=== PATIENT | male | born 1940 | race Caucasian/White ===

== ENCOUNTER → 2016-08-23 | Outpatient (CLI) | payer OTHER ==
--- NOTE | 2016-08-23 16:11 | DX ---
Sinus radiographs 3 views History: Postnasal drip for years, increasing lately. Comparison: None available. Findings: The paranasal sinuses appear aerated and clear. No air-fluid levels are identified. No disp laced fracture is identified. The nasal septum is minimally deviated to the right. Impression: No acute findings.
== END ==
LOC: BMCIMAGING 15:49
PROVIDERS: ATTEND Allergy & Immunology Allergy
DX: R09.82 Postnasal drip (principal)

== ENCOUNTER → 2016-09-09 | Outpatient (CLI) | payer OTHER ==
--- NOTE | 2016-09-09 11:15 | DX ---
PA and lateral chest. Clinical History: Cough, rule out pneumonia Comparison Study: March 29, 2011.. Findings: Minimal linear atelectasis is identified in the left lower lobe. No confluent infiltrate or pleural effusion. Heart size is normal.. Visualized osseous structures appear normal. Impression: Mild left lower lobe atelectasis, new. Otherwise negative.
== END ==
LOC: BMCIMAGING 10:31
PROVIDERS: ATTEND Allergy & Immunology Allergy
DX: R05 Cough (principal); J98.11 Atelectasis

== ENCOUNTER → 2016-09-20 | Outpatient (CLI) | payer OTHER | LOC: FIMAGING 10:29 | PROVIDERS: ATTEND Allergy & Immunology Allergy | DX: R05 Cough (principal) ==

== ENCOUNTER → 2016-10-13 | Outpatient (CLI) | payer OTHER | LOC: FIMAGING 09:45 | PROVIDERS: ATTEND Allergy & Immunology Allergy | DX: K21.9 Gastro-esophageal reflux disease without esophagitis (principal); K44.9 Diaphragmatic hernia without obstruction or gangrene ==

== ENCOUNTER → 2017-07-28 | Outpatient (CLI) | payer OTHER | LOC: FIMAGING 15:51 | PROVIDERS: ATTEND Orthopaedic Surgery | DX: Z01.818 Encounter for other preprocedural examination (principal); M17.12 Unilateral primary osteoarthritis, left knee ==

== ENCOUNTER 2017-08-15 08:35 | Observation (INO) | payer OTHER ==
--- NOTE | 2017-08-15 07:00 | PDHPUP ---
History & Physical Update H&P update statement: This history and physical update is based on an assessment of the patient which was completed after admission or registration (within 24 hours), but prior to the surgery/procedure.
--- NOTE | 2017-08-15 07:01 | PDIAF ---
- Diagnosis Diagnosis: L knee DJD Code Status: Full Code - Medication Management Discharge Medications: Medications to Continue on Transfer Aspirin [Aspirin 81mg (*)] 81 mg PO DAILY 07/13/17 [Last Taken Unknown] Carboxymethylcellulose 1% [Refresh Celluvisc (*)] 1 drop EACHEYE DAILY 07/13/17 [Last Taken Unknown] Finasteride [Proscar 5 MG (*)] 5 mg PO HS 07/13/17 [Last Taken Unknown] Herbals/Supplements -Info Only 1 ea PO DAILY 07/13/17 [Last Taken Unknown] Lisinopril [Zestril 5 mg (*)] 5 mg PO DAILY 07/13/17 [Last Taken Unknown] Multivitamins [Multivitamin (*)] 1 each PO DAILY 07/13/17 [Last Taken Unknown] Simvastatin [Zocor] 40 mg PO HS 07/13/17 [Last Taken Unknown] Solifenacin Succinate [Vesicare 5 MG (*)] 5 mg PO HS 07/13/17 [Last Taken Unknown] Discharge Medications: Refer to the Discharge Home Medication list for PRN reason. - Orders Services needed: Physical Therapy Activity/Weight Bearing Restrictions: WBAT, daily dressing changes, ROM as tolerated, may shower without bandage, no soaking or emersion, seek attention for increasing pain, SOB, CP, leg pain or other focal complaint, f/u up at 2 weeks as previously scheduled - Follow Up Care Current Providers and Referrals: Freddie Almanza MD [Primary Care Provider] -
[~2017-08-15 08:35] MED LIST: ROPIVACAINE 0.2% 80 MG, EPINEPHrine 0.2 MG, KETOROLAC TROMETHAMINE 30 MG, morphINE 10 M... IU ONE; TRANEXAMIC ACID 750 MG in NS 100 ML IV ONE
[2017-08-15] MEDS ORDERED: FAMOTIDINE 20 MG TAB PO ONE ×2 (09:15)
[2017-08-15] MEDS ORDERED: ceFAZolin 2 GM/SWFI 2 GM/20 ML SYR IVP ONE (09:15)
[2017-08-15] MEDS ORDERED: ACETAMINOPHEN 325 MG TAB PO ONE (09:15)
[2017-08-15] MEDS ORDERED: LIDOCAINE 1% 2 ML INJ ID PRN (09:16)
[2017-08-15] MEDS ORDERED: LR 1,000 ML IV ONE (09:16)
[2017-08-15] MEDS ORDERED: CALCIUM CHLORIDE 1 GM/10 ML INJ ONE (09:35)
[2017-08-15] MEDS ORDERED: THROMBIN (BOVINE) 5,000 UNIT VIAL TP ONE (09:35)
[2017-08-15] MEDS ORDERED: ceFAZolin 1 GM/5 ML SYR ONE ×2 (10:32→10:43)
--- NOTE | 2017-08-15 10:45 | PDANEPAE ---
ANE History of Present Illness 77 year old with type 1 diabetes onset in 2008. Blood sugar was 158 at 9:25. He has hyperlipidemia for which he is on simvistatin. GERD well controlled with omeprazole. He has had anesthesia in the past without difficulties. ANE Past Medical History - Cardiovascular History Hx Hypertension: Yes Hx Arrhythmias: No Hx Chest Pain: No Hx Coronary Artery / Peripheral Vascular Disease: No Hx CHF / Valvular Disease: No Hx Palpitations: No - Pulmonary History Hx COPD: No Hx Asthma/Reactive Airway Disease: No Hx Recent Upper Respiratory Infection: No Hx Oxygen in Use at Home: No Hx Sleep Apnea: No Sleep Apnea Screening Result - Last Documented: Positive - Neurologic History Hx Cerebrovascular Accident: No Hx Seizures: No Hx Dementia: No - Endocrine History Hx Diabetes: Yes Endocrine History Comment: type one diabetic - Renal History Hx Renal Disorders: No - Liver History Hx Hepatic Disorders: No - Neurological & Psychiatric Hx Hx Neurological and Psychiatric Disorders: Yes Neurological / Psychiatric History Comment: bilat neuropathy - Cancer History Hx Cancer: Yes Cancer History Comment: skin - Congenital Disorder History Hx Congenital Disorders: No - GI History Hx Gastrointestinal Disorders: Yes Gastrointestinal History Comment: reflux - Other Health History Other Health History: none - Chronic Pain History Chronic Pain: No - Surgical History Prior Surgeries: arthroscopic Lknee ANE Review of Systems Review of Systems: - Exercise capacity METS (RN): 4 METS ANE Patient History - Allergies Allergies/Adverse Reactions: No Known Allergies Allergy (Verified 07/15/17 10:39) - Home Medications Home Medications: Aspirin [Aspirin 81mg (*)] 81 mg PO DAILY 07/13/17 [Last Taken Unknown] Carboxymethylcellulose 1% [Refresh Celluvisc (*)] 1 drop EACHEYE DAILY 07/13/17 [Last Taken Unknown] Finasteride [Proscar 5 MG (*)] 5 mg PO HS 07/13/17 [Last Taken Unknown] Herbals/Supplements -Info Only 1 ea PO DAILY 07/13/17 [Last Taken Unknown] Lisinopril [Zestril 5 mg (*)] 5 mg PO DAILY 07/13/17 [Last Taken Unknown] Multivitamins [Multivitamin (*)] 1 each PO DAILY 07/13/17 [Last Taken Unknown] Simvastatin [Zocor] 40 mg PO HS 07/13/17 [Last Taken Unknown] Solifenacin Succinate [Vesicare 5 MG (*)] 5 mg PO HS 07/13/17 [Last Taken Unknown] - NPO status NPO Since - Liquids (Date): 08/14/17 NPO Since - Liquids (Time): 19:00 NPO Since - Solids (Date): 08/14/17 NPO Since - Solids (Time): 19:00 - Smoking Hx Smoking Status: Former smoker - Family Anes Hx Family Hx Anesthesia Complications: none ANE Labs/Vital Signs - Vital Signs Blood Pressure: 146/84 Heart Rate: 82 Respiratory Rate: 18 O2 Sat (%): 94 Height: 177.8 cm Weight: 74.843 kg ANE Physical Exam - Airway Neck exam: FROM Mallampati Score: Class 1 Mouth exam: normal dental/mouth exam - Pulmonary Pulmonary: no respiratory distress - Cardiovascular Cardiovascular: regular rate and rhythym - ASA Status ASA Status: II ANE Anesthesia Plan Anesthesia Plan: MAC, spinal Total IV Anesthesia: Yes
--- NOTE | 2017-08-15 10:52 | PDANEPAE ---
ANE Past Medical History - Cardiovascular History Hx Hypertension: Yes Hx Arrhythmias: No Hx Chest Pain: No Hx Coronary Artery / Peripheral Vascular Disease: No Hx CHF / Valvular Disease: No Hx Palpitations: No - Pulmonary History Hx COPD: No Hx Asthma/Reactive Airway Disease: No Hx Recent Upper Respiratory Infection: No Hx Oxygen in Use at Home: No Hx Sleep Apnea: No Sleep Apnea Screening Result - Last Documented: Positive - Neurologic History Hx Cerebrovascular Accident: No Hx Seizures: No Hx Dementia: No - Endocrine History Hx Diabetes: Yes Endocrine History Comment: type one diabetic - Renal History Hx Renal Disorders: No - Liver History Hx Hepatic Disorders: No - Neurological & Psychiatric Hx Hx Neurological and Psychiatric Disorders: Yes Neurological / Psychiatric History Comment: bilat neuropathy - Cancer History Hx Cancer: Yes Cancer History Comment: skin - Congenital Disorder History Hx Congenital Disorders: No - GI History Hx Gastrointestinal Disorders: Yes Gastrointestinal History Comment: reflux - Other Health History Other Health History: none - Chronic Pain History Chronic Pain: No - Surgical History Prior Surgeries: arthroscopic Lknee ANE Review of Systems Review of Systems: - Exercise capacity METS (RN): 4 METS ANE Patient History - Allergies Allergies/Adverse Reactions: No Known Allergies Allergy (Verified 07/15/17 10:39) - Home Medications Home Medications: Aspirin [Aspirin 81mg (*)] 81 mg PO DAILY 07/13/17 [Last Taken Unknown] Carboxymethylcellulose 1% [Refresh Celluvisc (*)] 1 drop EACHEYE DAILY 07/13/17 [Last Taken Unknown] Finasteride [Proscar 5 MG (*)] 5 mg PO HS 07/13/17 [Last Taken Unknown] Herbals/Supplements -Info Only 1 ea PO DAILY 07/13/17 [Last Taken Unknown] Lisinopril [Zestril 5 mg (*)] 5 mg PO DAILY 07/13/17 [Last Taken Unknown] Multivitamins [Multivitamin (*)] 1 each PO DAILY 07/13/17 [Last Taken Unknown] Simvastatin [Zocor] 40 mg PO HS 07/13/17 [Last Taken Unknown] Solifenacin Succinate [Vesicare 5 MG (*)] 5 mg PO HS 07/13/17 [Last Taken Unknown] - NPO status NPO Since - Liquids (Date): 08/14/17 NPO Since - Liquids (Time): 19:00 NPO Since - Solids (Date): 08/14/17 NPO Since - Solids (Time): 19:00 - Smoking Hx Smoking Status: Former smoker - Family Anes Hx Family Hx Anesthesia Complications: none ANE Labs/Vital Signs - Vital Signs Blood Pressure: 146/84 Heart Rate: 82 Respiratory Rate: 18 O2 Sat (%): 94 Height: 177.8 cm Weight: 74.843 kg ANE Anesthesia Plan Anesthesia Plan: general endotracheal anesthesia (Patient had spinal with a Post Dural Puncture Headache and blood patch would prefer General Anesthesia)
[2017-08-15] MEDS ORDERED: ROCURONIUM 50 MG/5 ML VIAL ONE (10:57)
[2017-08-15] MEDS ORDERED: fentaNYL 250 MCG/5 ML INJ ONE (10:57)
[2017-08-15] MEDS ORDERED: MIDAZOLAM 2 MG/2 ML VIAL ONE (10:57)
[2017-08-15] MEDS ORDERED: PROPOFOL 200 MG/20 ML VIAL ONE (10:57)
[2017-08-15] MEDS ORDERED: ONDANSETRON 4 MG/2 ML VIAL ONE (12:47)
[2017-08-15] MEDS ORDERED: DEXAMETHASONE 4 MG/ML VIAL ONE (12:47)
[2017-08-15] MEDS ORDERED: HYDROmorphONE/DILAUDID 2 MG/ML INJ ONE (13:02)
[2017-08-15] MEDS ORDERED: NALOXONE HCL 0.4 MG/ML INJ IVP PRN (13:10)
[2017-08-15] MEDS ORDERED: MEPERIDINE 25 MG/ML SYR IVP PRN (13:10)
[2017-08-15] MEDS ORDERED: ONDANSETRON 4 MG/2 ML VIAL IVP PRN ×2 (13:10→13:38)
[2017-08-15] MEDS ORDERED: fentaNYL 100 MCG/2 ML INJ IVP PRN (13:10)
[2017-08-15] MEDS ORDERED: LR 500 ML IV PRN (13:10)
[2017-08-15] MEDS ORDERED: ONDANSETRON DISINTEGRATING 4 MG TAB PO PRN (13:38)
[2017-08-15] MEDS ORDERED: diphenhydrAMINE 25 MG CAP PO PRN (13:38)
[2017-08-15] MEDS ORDERED: POLYETHYLENE GLYCOL 3350 17 GM PKT PO PRN (13:38)
[2017-08-15] MEDS ORDERED: BISACODYL 10 MG SUPP PR PRN (13:38)
[2017-08-15] MEDS ORDERED: PROMETHAZINE HCL 25 MG/ML INJ IVP PRN (13:38)
[2017-08-15] MEDS ORDERED: LACTULOSE 20 GM/30 ML UDCUP PO PRN (13:38)
[2017-08-15] MEDS ORDERED: PROMETHAZINE HCL 25 MG SUPPR PR PRN (13:38)
[2017-08-15] MEDS ORDERED: MAGNESIUM HYDROXIDE 30 ML UDCUP PO PRN (13:38)
[2017-08-15] MEDS ORDERED: DIPHENOXYLATE/ATROPINE LOMOTIL 1 TAB PO PRN (13:38)
[2017-08-15] MEDS ORDERED: DIAZEPAM 5 MG TAB PO PRN (13:38)
[2017-08-15] MEDS ORDERED: TEMAZEPAM 15 MG CAP PO PRN (13:38)
[2017-08-15] MEDS ORDERED: METOCLOPRAMIDE 10 MG/2 ML VIAL IVP PRN (13:38)
[2017-08-15] MEDS ORDERED: NEOSTIGMINE METHYLSULFATE 3 MG/3 ML SYR ONE (13:57)
[2017-08-15] MEDS ORDERED: GLYCOPYRROLATE 0.2 MG/1 ML VIAL ONE (13:57)
[2017-08-15] MEDS ORDERED: LR 1,000 ML IV SCH (14:00)
[2017-08-15] MEDS: oxyCODONE IR 5 MG TAB PO PRN ×2 (16:29→19:48)
[2017-08-15] MEDS: ACETAMINOPHEN 325 MG TAB PO SCH ×2 (18:21→23:12)
[2017-08-15] MEDS: TRANEXAMIC ACID 650 MG TAB PO SCH ×2 (18:58→20:34)
[2017-08-15] MEDS: ceFAZolin 2 GM/DEXTROSE 100 ML IV SCH (19:49)
[2017-08-15] MEDS: ASPIRIN 325 MG TAB PO SCH (20:32)
[2017-08-15] MEDS: FAMOTIDINE 20 MG TAB PO SCH (20:33)
[2017-08-15] MEDS: SENNOSIDES/DOCUSATE SODIUM TAB PO SCH (20:33)
[2017-08-15] MEDS ORDERED: SOLIFENACIN SUCCINATE 5 MG TAB PO SCH (21:00)
[2017-08-15] MEDS ORDERED: ATORVASTATIN CALCIUM 20 MG TAB PO SCH (21:00)
[2017-08-15] MEDS ORDERED: FINASTERIDE 5 MG TAB PO SCH (21:00)
[2017-08-16] MEDS: ceFAZolin 2 GM/DEXTROSE 100 ML IV SCH (04:26)
[2017-08-16] MEDS ORDERED: TRANEXAMIC ACID 650 MG TAB PO SCH (04:30)
[2017-08-16] MEDS: ACETAMINOPHEN 325 MG TAB PO SCH (05:12)
[2017-08-16 07:21] VITALS: BP 137/81; RESP 16; TEMP 98.3
--- NOTE | 2017-08-16 07:51 | PDIAF ---
- Diagnosis Diagnosis: L knee DJD Code Status: Full Code - Medication Management Discharge Medications: Medications to Continue on Transfer Aspirin [Aspirin 81mg (*)] 81 mg PO DAILY 07/13/17 [Last Taken Unknown] Carboxymethylcellulose 1% [Refresh Celluvisc (*)] 1 drop EACHEYE DAILY 07/13/17 [Last Taken Unknown] Finasteride [Proscar 5 MG (*)] 5 mg PO HS 07/13/17 [Last Taken Unknown] Herbals/Supplements -Info Only 1 ea PO DAILY 07/13/17 [Last Taken Unknown] Lisinopril [Zestril 5 mg (*)] 5 mg PO DAILY 07/13/17 [Last Taken Unknown] Multivitamins [Multivitamin (*)] 1 each PO DAILY 07/13/17 [Last Taken Unknown] Simvastatin [Zocor] 40 mg PO HS 07/13/17 [Last Taken Unknown] Solifenacin Succinate [Vesicare 5 MG (*)] 5 mg PO HS 07/13/17 [Last Taken Unknown] Aspirin [Aspirin 325 mg (*)] 325 mg PO DAILY tab 08/16/17 [Last Taken Unknown] oxyCODONE IR [Oxycodone Ir (*)] 5 - 10 mg PO Q3HRS PRN #90 tab 08/16/17 [Last Taken Unknown] Discharge Medications: Refer to the Discharge Home Medication list for PRN reason. - Orders Services needed: Physical Therapy Diet Recommendation: no restrictions on diet Activity/Weight Bearing Restrictions: WBAT, daily dressing changes, ROM as tolerated, may shower without bandage, no soaking or emersion, seek attention for increasing pain, SOB, CP, leg pain or other focal complaint, f/u up at 2 weeks as previously scheduled - Follow Up Care Current Providers and Referrals: Freddie Almanza MD [Primary Care Provider] -
--- NOTE | 2017-08-16 07:53 | SOAPPROG ---
SOAP Progress Note Assessment/Plan: Assessment: s/p left tka Plan: wbat rom sas marit d/c home dvt precautions monitor glucose level 08/16/17 07:51 Subjective: mild pain no cp or sob marti po Objective: Vital Signs Temp Pulse Resp BP Pulse Ox 36.8 C 73 16 137/81 H 95 08/16/17 07:20 08/16/17 07:20 08/16/17 07:20 08/16/17 07:20 08/16/17 07:20 Laboratory Results 08/16/17 04:49 08/15/17 08/16/17 08/17/17 05:59 05:59 05:59 Intake Total 2880 Output Total 605 Balance 2275 dressing intact intact pf,df, ehl toes warm andpink neg homans xrays stable alignemnt, no fx or lucency ICD10 Worksheet Patient Problems: Problems Problem Status Onset Arthritis of knee, left Acute - ICD10 Problem Qualifiers (1) Arthritis of knee, left
[2017-08-16] MEDS: FAMOTIDINE 20 MG TAB PO SCH (08:33)
[2017-08-16] MEDS: SENNOSIDES/DOCUSATE SODIUM TAB PO SCH (08:34)
[2017-08-16] MEDS: oxyCODONE IR 5 MG TAB PO PRN (08:34)
[2017-08-16] MEDS: ASPIRIN 325 MG TAB PO SCH (08:34)
[2017-08-16] MEDS ORDERED: Carboxymethylcellulose 1% [Refresh Celluvisc (*)] 1 DROP EACHEYE SCH (09:00)
[2017-08-16] MEDS ORDERED: LISINOPRIL 5 MG TAB PO SCH (09:00)
--- NOTE | 2017-08-16 12:20 | ASDISCHSUM ---
Discharge Information Plan Status:Home with Home Health Medically Cleared to Leave: Discharge Date:08/16/2017 11:50 AM CM D/C Disposition:Home Health Service ADT D/C Disposition:Home Health Service Projected Discharge Date:08/16/2017 11:00 AM Transportation at D/C: Discharge Delay Reason: Follow-Up Date:08/16/2017 11:00 AM Discharge Slot: Final Diagnosis: Placement Information Referral Type:*Home Health Care Services Referral ID:[id number] Provider Name:[facility] [place] Address 1:[facility] [address] Address 2: City:[place] Selection Factors: State:[place] Patient Contact Information Contact Name:VARGHESE Relationship: Address:[address] Home Phone: City:[place] Alternate Phone: State/Zip Code:[place] [address] Email: Financial Information Financial Class: Primary Plan Desc:MEDICARE OUTPATIENT Primary Plan Number:[id number] Secondary Plan Desc:[place] [employer] Secondary Plan Number:[id number] Assessment Information [facility] CM Progress Note CM Note CM Note Notes: Pt medically stable for d/c with [facility], address/phone verified. Orders sent in [email or web address]. Date Signed: 08/16/2017 12:19 PM Electronically Signed By:RITU Morales Intervention Information Intervention Type:*Incorrect Registration Date of Service:08/15/2017 03:18 PM Patient Type:Inpatient Staff Member:MERE Canseco Courtney Hours: Discipline: Severity: Comment: Intervention Type:*PETERS-Signed Date of Service:08/16/2017 10:16 AM Patient Type:Observation Staff Member:Billie Bojorquez Hours: Discipline: Severity: Comment:
--- NOTE | 2017-08-16 12:20 | ASMTCMCOM ---
CM Note CM Note Notes: Pt medically stable for d/c with [facility], address/phone verified. Orders sent in [employer]. Date Signed: 08/16/2017 12:19 PM Electronically Signed By:RITU Morales
[2017-08-16 13:19] VITALS: PULSE 77; O2SAT 91
== END 2017-08-16 11:50 | disposition home health service (06) ==
LOC: F3N 08:35 → INTOOBSV 08:35 → F3N 15:33
PROVIDERS: ADMIT Orthopaedic Surgery; ATTEND Orthopaedic Surgery
PROC: 3E0U3GC Introduction of Other Therapeutic Substance into Joints, Percutaneous Approach (ICD-10-PCS; principal; 2017-08-15 10:45)
PROC: 0SRD0J9 Replacement of Left Knee Joint with Synthetic Substitute, Cemented, Open Approach (ICD-10-PCS; principal; 2017-08-15 10:45)
PROC: 8E0YXBZ Computer Assisted Procedure of Lower Extremity (ICD-10-PCS; principal; 2017-08-15 10:45)
DX: M17.12 Unilateral primary osteoarthritis, left knee (principal); E10.9 Type 1 diabetes mellitus without complications; E78.5 Hyperlipidemia, unspecified; I10 Essential (primary) hypertension; K21.9 Gastro-esophageal reflux disease without esophagitis; Z87.891 Personal history of nicotine dependence
CPT/HCPCS: 0232T; 27447; 73560; 88311; 97161; 97165; C1776; G8978; G8979; G8980; G8987; G8988; G8989; J0171; J0690; J1100; J1170; J1885; J2250; J2405; J2550; J2704; J2710; J2795; J3010

== ENCOUNTER → 2017-09-23 | Outpatient (CLI) | payer OTHER | LOC: BMCIMAGING 12:57 | PROVIDERS: ATTEND Physician Assistant | DX: Z47.1 Aftercare following joint replacement surgery (principal); Z96.652 Presence of left artificial knee joint ==

== ENCOUNTER → 2017-11-04 | Outpatient (CLI) | payer OTHER | LOC: BMCIMAGING 13:52 | PROVIDERS: ATTEND Physician Assistant | DX: Z47.1 Aftercare following joint replacement surgery (principal); Z96.652 Presence of left artificial knee joint ==

== ENCOUNTER → 2018-08-15 | Outpatient (CLI) | payer OTHER | LOC: BMCIMAGING 13:15 | PROVIDERS: ATTEND Physician Assistant | DX: Z47.1 Aftercare following joint replacement surgery (principal); Z96.652 Presence of left artificial knee joint ==